=== PATIENT | male | born 1985 ===

== ENCOUNTER 2018-05-29 12:55 | Emergency (ER) | payer MEDICAID ==
[2018-05-29 13:01] VITALS: RESP 18
--- NOTE | 2018-05-29 13:24 | C.PDOC ---
History Of Present Illness 32 y/o male presents to the ER complaining of left foot pain which has been present for the past 2 days. Patient rates the pain 8/10. Patient reports that he took Ibuprofen 800 mg QID.Of note, patient's girlfriend states that patient saw PMD 2 months ago.She notes that he had elevated uric acid levels and he was prescribed medications which he did not take.Denies having trauma,injuries, bug bites, weakness, numbness, and tingling. Time Seen by Provider: 05/29/18 13:05 Chief Complaint (Nursing): Lower Extremity Problem/Injury History Per: Patient History/Exam Limitations: no limitations Onset/Duration Of Symptoms: Days Current Symptoms Are (Timing): Still Present Severity: Moderate Past Medical History Reviewed: Historical Data, Nursing Documentation, Vital Signs Vital Signs: Last Vital Signs Temp 97.8 F 05/29/18 12:58 Pulse 93 H 05/29/18 12:58 Resp 18 05/29/18 12:58 BP 147/90 05/29/18 12:58 Pulse Ox 95 05/29/18 12:58 - Medical History PMH: Asthma Surgical History: No Surg Hx Family History: States: No Known Family Hx - Social History Hx Alcohol Use: Yes Hx Substance Use: No - Immunization History Hx Tetanus Toxoid Vaccination: No Hx Influenza Vaccination: No Hx Pneumococcal Vaccination: No Review Of Systems Except As Marked, All Systems Reviewed And Found Negative. Constitutional: Negative for: Fever, Chills Musculoskeletal: Positive for: Foot Pain (left foot pain). Negative for: Leg Pain Skin: Negative for: Rash Neurological: Negative for: Weakness, Numbness Physical Exam - Physical Exam Appears: Non-toxic, No Acute Distress Skin: Warm, Dry, Other (erythema along 1st MTP of left great toe) Head: Atraumatic, Normacephalic Eye(s): bilateral: Normal Inspection Nose: Normal Oral Mucosa: Moist Neck: Supple Chest: Symmetrical Extremity: Normal ROM, Tenderness (tenderness to palpation over left great toe ), No Calf Tenderness, Capillary Refill (< 2 seconds), No Deformity, No Swelling Pulses: Left Dorsalis Pedis: Normal, Right Dorsalis Pedis: Normal Neurological/Psych: Oriented x3, Normal Speech, Normal Motor, Normal Sensation ED Course And Treatment O2 Sat by Pulse Oximetry: 95 (RA) Pulse Ox Interpretation: Normal - Other Rad X-Ray-Left Foot X-Ray: Viewed By Me, Read By Radiologist Interpretation: PROCEDURE: Radiographs of the left great toe. TECHNIQUE:: AP radiograph of the left foot, with oblique and lateral view of the left great toe. 3 view obtained. COMPARISON: No prior study available for comparison. FINDINGS: BONES: No evidence of acute displaced fracture nor dislocation. The osseous structures appear intact. No obvious cortical destructive changes. JOINTS: Joint spaces preserved. No significant osteoarthritis. SOFT TISSUES: Questionable mild soft tissue swelling left great toe. OTHER FINDINGS: None. IMPRESSION: No evidence of acute displaced fracture nor dislocation. No obvious cortical destructive changes. Questionable mild soft tissue swelling left great toe. Clinical correlation recommended to exclude the possibility of a cellulitis and if suspected clinically, consider follow-up MRI. Medical Decision Making Medical Decision Making: Plan: --Toradol IM --X-Ray-Left Great Toe- No evidence of acute displaced fracture nor dislocation. No obvious cortical destructive changes. Dx: Gout - will be discharged with indomethacin and prednisone - patient to follow up with PMD for uric levels and further treatment - patient verbalizes understanding and is in agreement with plan - patient is stable for discharge Disposition Counseled Patient/Family Regarding: Studies Performed, Diagnosis, Need For Followup, Rx Given - Disposition Referrals: Amauri Churchill MD [Staff Provider] - Disposition: HOME/ ROUTINE Disposition Time: 14:37 Condition: IMPROVED Additional Instructions: Use meds as instructed for 5 days Rest, Ice, Compression, and Elevation Follow up with PMD in 1-2 days Return to ED if symptoms worsen Prescriptions: Indomethacin [Indocin] 50 mg PO TID 5 Days #15 cap predniSONE [predniSONE Tab] 60 mg PO DAILY #15 tab Instructions: Gout (DC) Forms: Partnered (Turkish), Work Excuse Print Language: CITIZ[place] - Clinical Impression Clinical Impression: Left foot pain, Gout - PA / MANAGER GALLERY / Resident Statement MD/DO has reviewed & agrees with the documentation as recorded. - Scribe Statement The provider has reviewed the documentation as recorded by the Kameron Samuel Provider Attestation All medical record entries made by the Kameron were at my direction and personally dictated by me. I have reviewed the chart and agree that the record accurately reflects my personal performance of the history, physical exam, medical decision making, and the department course for this patient. I have also personally directed, reviewed, and agree with the discharge instructions and disposition.
--- NOTE | 2018-05-29 14:32 | RAD ---
PROCEDURE: Radiographs of the left great toe. TECHNIQUE:: AP radiograph of the left foot, with oblique and lateral view of the left great toe. 3 view obtained. COMPARISON: No prior study available for comparison FINDINGS: BONES: No evidence of acute displaced fracture nor dislocation. The osseous structures appear intact. No obvious cortical destructive changes. JOINTS: Joint spaces preserved. No significant osteoarthritis. SOFT TISSUES: Questionable mild soft tissue swelling left great toe OTHER FINDINGS: None. IMPRESSION: No evidence of acute displaced fracture nor dislocation. No obvious cortical destructive changes. Questionable mild soft tissue swelling left great toe. Clinical correlation recommended to exclude the possibility of a cellulitis and if suspected clinically, consider follow-up MRI.
[2018-05-29 15:04] VITALS: BP 142/89; PULSE 77; TEMP 97.9
[2018-05-29 16:27] VITALS: O2SAT 95
== END 2018-05-29 15:07 | disposition home or self-care (01) ==
LOC: C.ER 12:55
DX: M10.9 Gout, unspecified (principal); M79.672 Pain in left foot
CPT/HCPCS: 73660; 96372; 99284; J1885